=== PATIENT | female | born 1995 | race African-American/Black ===

== ENCOUNTER 2020-09-05 21:37 | Emergency (ER) | payer OTHER ==
[2020-09-06] MEDS ORDERED: AUGMENTIN 875-1 EACH PO (02:28)
== END 2020-09-06 03:18 | disposition home or self-care (01) ==
LOC: FER 21:37
DX: N90.7 Vulvar cyst (principal)
CPT/HCPCS: 94760; 96374; 99152; J2405

== ENCOUNTER → 2020-11-22 | Day surgery (SDC) | payer OTHER ==
[~2020-11-22] VITALS: Ht 167.6 cm; Wt 106.6 kg
[~2020-11-22] MED LIST: AUGMENTIN 875-1 EACH PO
[2020-11-22 10:46] LABS: HCG (URINE) SCREEN NEGATIVE (NEGATIVE)
[2020-11-22 11:28] LABS: HCT 43.3 % (37.0-47.0); HGB 13.7 g/dl (12.5-16.0); MCH 25.7 pg (25.0-31.0); MCHC 31.6 g/dL (32.0-36.0); MCV 81.2 fL (78.0-100.0); RBC 5.33 M/uL (4.20-5.40); RDW 13.5 % (11.5-14.0); WBC 7.6 K/uL (4.0-10.5)
== END | disposition home or self-care (01) ==
LOC: FAS 10:18
PROVIDERS: Obstetrics & Gynecology
DX: N75.1 Abscess of Bartholin's gland (principal); Z88.8 Allergy status to other drugs, medicaments and biological substances; Z79.899 Other long term (current) drug therapy
CPT/HCPCS: 36415; 84703; 86850; 86900; 86901; 93005; J1170; J1885; J2250; J2405; J2704; J3010; J7120